=== PATIENT | male | born 1950 | race Caucasian/White ===

== ENCOUNTER 2022-01-17 13:01 | Outpatient (REF) | payer MEDICARE, SELFPAY ==
[2022-01-17 13:23] VITALS: BMI 28.8
[2022-01-17 13:24] VITALS: BP 177/87; PULSE 85; RESP 16; TEMP 36.2; O2SAT 97
== END 2022-01-17 13:02 | disposition home or self-care (01) ==
LOC: HO.MS 13:01
PROVIDERS: PCP Internal Medicine; Visit Provider Ophthalmology
PROC: (CPT 66821; principal; 2022-01-17 15:30)
DX: H26.492 Other secondary cataract, left eye (principal); Z96.1 Presence of intraocular lens; I10 Essential (primary) hypertension; E78.00 Pure hypercholesterolemia, unspecified; M10.9 Gout, unspecified; Z79.899 Other long term (current) drug therapy; Z88.0 Allergy status to penicillin
CPT/HCPCS: 66821